=== PATIENT | male | born 1975 | race American Indian/Alaskan Native ===

== ENCOUNTER 2016-07-16 11:26 | Emergency (ER) | payer MEDICAID, OTHER ==
[2016-07-16 11:27] VITALS: BMI 28.5
[2016-07-16 11:50] VITALS: BP 131/83; PULSE 93; RESP 20; TEMP 98; O2SAT 97
--- NOTE | 2016-07-16 12:19 | C.PDOC ---
History Of Present Illness 40 y/o male presents to the ED requesting marijuana and crystal meth detox. Pt denies alcohol use. Denies SI/HI or any other complaints. Time Seen by Provider: 07/16/16 11:42 Chief Complaint (Nursing): Substance Abuse History Per: Patient History/Exam Limitations: no limitations Suicide/Self Injury Attempted (Context): None Modifying Factor(s): Marijuana Severity: Mild Associated Symptoms: denies: Suicidal Thoughts Involuntary Hold By: None Recent travel outside of the [place]: No Past Medical History Reviewed: Historical Data, Nursing Documentation, Vital Signs Vital Signs: Last Vital Signs Temp 98 F 07/16/16 11:35 Pulse 93 H 07/16/16 11:35 Resp 20 07/16/16 11:35 BP 131/83 07/16/16 11:35 Pulse Ox 97 07/16/16 12:25 - Medical History PMH: Anxiety, Bipolar Disorder, Depression, GERD, HTN, Hyperlipidemia, Migraine - [facility] Procedures INJECT/INFUSE NEC (09/07/13) Family History: States: Unknown Family Hx - Social History Hx Tobacco Use: Yes Hx Alcohol Use: No Hx Substance Use: Yes - Immunization History Hx Tetanus Toxoid Vaccination: No Hx Influenza Vaccination: No Hx Pneumococcal Vaccination: No Review Of Systems Constitutional: Negative for: Fever Cardiovascular: Negative for: Chest Pain Respiratory: Negative for: Shortness of Breath Gastrointestinal: Negative for: Vomiting Psych: Negative for: Suicidal ideation Physical Exam - Physical Exam Appears: Non-toxic, No Acute Distress, Unkempt Skin: Warm, Dry, No Rash Head: Atraumatic, Normacephalic Neck: Normal ROM, Supple Chest: Symmetrical Cardiovascular: Rhythm Regular, No Murmur Respiratory: Normal Breath Sounds, No Rales, No Rhonchi, No Wheezing Extremity: Bilateral: Atraumatic Neurological/Psych: Oriented x3 ED Course And Treatment O2 Sat by Pulse Oximetry: 97 (on room air) Pulse Ox Interpretation: Normal Progress Note: 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 - Scribe Statement The provider has reviewed the documentation as recorded by the Scribe José Pathak All medical record entries made by the Keeshaibshania were at my direction and personally dictated by me. I have reviewed the chart and agree that the record accurately reflects my personal performance of the history, physical exam, medical decision making, and the department course for this patient. I have also personally directed, reviewed, and agree with the discharge instructions and disposition.
== END 2016-07-16 12:25 | disposition home or self-care (01) ==
LOC: C.ER 11:26
DX: F19.10 Other psychoactive substance abuse, uncomplicated (principal)